=== PATIENT | male | born 1955 | race Caucasian/White ===

== ENCOUNTER 2020-08-23 07:54 | Day surgery (SDC) | payer OTHER ==
--- NOTE | 2020-08-22 11:28 | PCM.PREANE ---
Preanesthetic Assessment - Procedure Proposed Procedure: Right Total Hip Arthroplasty - Anesthesia/Transfusion/Family Hx Anesthesia History: Prior Anesthesia Without Reaction Family History of Anesthesia Reaction: No Transfusion History: No Prior Transfusion(s) Intubation History: Unknown - Review of Systems General: No Symptoms Pulmonary: No Symptoms (COPD: Asthma-last used inhaler: routinely takes BID History of pulmonary nodules, ETOH:Daily 2-3 beers/wine), Cough Cardiovascular: No Symptoms, Dyspnea on Exertion Gastrointestinal: No Symptoms (GERD-depending on diet) Neurological: No Symptoms (Lower back pain #2/10 goes to chiropractor regularly, Vertigo, Motion Sickiness) Other: Reports: None (History of DVT as a freshman in high school.), Sinus Problem (post nasal drip), Depression - Physical Assessment NPO Status Date: 08/22/20 NPO Status Time: 19:30 Vital Signs: HR:74 Sat:96% Temp:97.6 Resp:20 B/P:139/94 Height: 1.73 m Weight: 97 kg ASA Class: 2 Mental Status: Alert & Oriented x3 Airway Class: Mallampati = 2 Dentition: Reports: Normal Dentition, Caries Thyro-Mental Finger Breadths: 3 Mouth Opening Finger Breadths: 3 ROM/Head Extension: Full Lungs: Clear to Auscultation, Normal Respiratory Effort Cardiovascular: Regular Rate, Regular Rhythm, No Murmurs - Lab Values: Laboratory Last Values MRSA (PCR) Negative 08/11/20 13:48 All labs reviewed and noted and within acceptable ranges to proceed with scheduled procedure. - Imaging/EKG Impressions: EKG: SR rate=71, LAE, Incomplete RBBB CXR: negative Chest CT: 12/03/2019: Stable small pulmonary nodules(6mm Right lower lobe, smaller stable nodules also noted.) - Allergies Allergies/Adverse Reactions: Allergies Allergy/AdvReac Type Severity Reaction Status Date / Time No Known Allergies Allergy Verified 08/22/20 14:08 - Anesthesia Plan Pre-Op Medication Ordered: Other (Preoperative oral medications in preop: lyrica, tylenol, oxycodone @ 0840) - Acknowledgements Anesthesia Type Planned: Spinal Pt an Appropriate Candidate for the Planned Anesthesia: Yes Alternatives and Risks of Anesthesia Discussed w Pt/Guardian: Yes Pt/Guardian Understands and Agrees with Anesthesia Plan: Yes PreAnesthesia Questionnaire - HOME MEDS Home Medications: Home Meds Albuterol [Proventil Neb Soln] 1 dose INH Q6H PRN 08/22/20 [History] Albuterol [Take Home: Albuterol 18 GM, 1 INH Pack] 2 puff INH Q4H PRN 08/22/20 [History] Ascorbate Calcium/Bioflavonoid [Mae-C 1,000 mg Tablet] 1 tab PO DAILY 08/22/20 [History] Cholecalciferol (Vitamin D3) [Vitamin D3] 5,000 unit PO DAILY 08/22/20 [History] Electrolytes/Dextrose [Electrolyte Solution] 1 dose PO DAILY 08/22/20 [History] Fluticasone Propionate [Flovent HFA 110 MCG] 2 puff INH BID 08/22/20 [History] Cyclobenzaprine [Flexeril] 10 mg PO BID PRN #20 tab 08/23/20 [Rx] Rivaroxaban [Xarelto] 10 mg PO DAILY #35 tab 08/23/20 [Rx] oxyCODONE 5 - 10 mg PO Q4H PRN #60 tab 08/23/20 [Rx] - CURRENT (IN HOUSE) MEDS Current Meds: Current Medications Albuterol (Proventil Neb Soln) 2.5 mg NEB ONETIME PRN PRN Reason: Asthma Lactated Ringer's (Ringers, Lactated) 1,000 mls @ 125 mls/hr IV ASDIRECTED YOKO Stop: 08/23/20 23:00 Lidocaine/Sodium Bicarbonate (Buffered Lidocaine 1% In Ns 8.4%) 0.25 ml IDERM ONETIME PRN PRN Reason: Prior to IV Start Stop: 08/23/20 18:00 Sodium Chloride (Saline Flush) 10 ml FLUSH ASDIRECTED PRN PRN Reason: Keep Vein Open Stop: 08/23/20 18:00
[~2020-08-23 07:54] MED LIST: Acetaminophen 325 MG Tab PO SCH; Albuterol 0.083% 2.5 MG/3 ML Neb Soln NEB PRN; Dexamethasone 4 MG/ML 5 ML MDV ONE; Ketamine 500 mg/10 ML MDV ONE; Ketorolac 30 MG/ML SDV ONE; Lactated Ringers 1,000 ML IV SCH; Lactated Ringers 1,000 ML ONE; Lidocaine 1% 4 ML ONE; Lidocaine 1%/Sod Bicarbonate in NS 8.4% 1 ML Syringe IDERM PRN; Midazolam 1 MG/ML 2 ML SDV ONE; Ondansetron 4 MG/2 ML SDV ONE; Pregabalin 25 MG Cap PO SCH; Propofol 200 MG/20 ML SDV ONE; Sodium Chloride 0.9% 10 ML Syringe FLUSH PRN; ceFAZolin 1 GM Vial ONE; fentaNYL 100 MCG/2 ML SDV ONE; oxyCODONE ER 10 MG TAB.ER PO SCH
[2020-08-23] MEDS ORDERED: Scopolamine 1.5 MG Transdermal Patch TRDERM ONE (08:40)
[2020-08-23] MEDS ORDERED: Midazolam 1 MG/ML 2 ML SDV ONE (08:50)
[2020-08-23] MEDS ORDERED: Lactated Ringers 1,000 ML ONE (08:51)
[2020-08-23] MEDS ORDERED: diphenhydrAMINE 50 MG/ML SDV IVPUSH PRN (09:55)
[2020-08-23] MEDS ORDERED: ePHEDrine 50 MG/ML SDV IVPUSH PRN (09:55)
[2020-08-23] MEDS ORDERED: fentaNYL 100 MCG/2 ML SDV IVPUSH PRN (09:55)
[2020-08-23] MEDS ORDERED: Metoclopramide 10 MG/2 ML SDV IV PRN (09:55)
[2020-08-23] MEDS ORDERED: Ondansetron 4 MG/2 ML SDV IVPUSH PRN (09:55)
[2020-08-23] MEDS ORDERED: Midazolam 1 MG/ML 2 ML SDV IVPUSH PRN (09:55)
[2020-08-23] MEDS ORDERED: Albuterol 0.083% 2.5 MG/3 ML Neb Soln NEB PRN (09:56)
[2020-08-23] MEDS ORDERED: HYDROmorphone 0.5 MG/0.5 ML Syringe IVPUSH PRN (10:03)
[2020-08-23] MEDS ORDERED: Propofol 200 MG/20 ML SDV ONE (10:23)
[2020-08-23] MEDS: Bupivacaine 0.25% 10 ML SDV ONE ×2 (10:31→10:43)
[2020-08-23] MEDS: Morphine 8 MG, EPINEPHrine 0.3 MG, Cefuroxime 750 MG, Ketorolac 30 MG, Sodium Chloride ... ONE ×10 (10:32→10:43)
[2020-08-23] MEDS: Vancomycin 1 GM SDV ONE ×2 (10:33→10:52)
--- NOTE | 2020-08-23 11:22 | PCM.POSTAN ---
POST ANESTHESIA ASSESSMENT - MENTAL STATUS Mental Status: Alert - VITAL SIGNS Vital Signs: Last Vital Signs Temp 97.5 08/23/20 1113 Pulse 73 08/23/20 1113 Resp 14 08/23/20 1113 BP 132/85 08/23/20 1113 Pulse Ox 97% 08/23/20 1113 - RESPIRATORY Respiratory Status: Respiratory Rate WNL, Airway Patent, O2 Saturation Stable, Supplemental Oxygen - CARDIOVASCULAR CV Status: Pulse Rate WNL, Blood Pressure Stable - GASTROINTESTINAL GI Status: No Symptoms - POST OP HYDRATION Hydration Status: Adequate & Stable
[2020-08-23] MEDS ORDERED: oxyCODONE 5 MG Tab PO PRN (12:41)
--- NOTE | 2020-08-30 13:54 | PCM.OPNOTE ---
- General Post-Op/Procedure Note Date of Surgery/Procedure: 08/23/20 Operative Procedure(s): right total hip arthroplasty Pre Op Diagnosis: right hip osteoarthrosis Post-Op Diagnosis: Same Anesthesia Technique: Local, MAC, Spinal Primary Surgeon: Nikhil Justin Anesthesia Provider: Faith Redmond Parts Sales Representative: Tere Moulton Parts Sales Representative: Luna Burgos EBL in mLs: 200 Complications: None Condition: Good Free Text/Narrative:: 60 cup 6 stem 28-4
--- NOTE | 2020-08-30 13:57 | CR ---
PROCEDURE INFORMATION: Exam: XR Pelvis Exam date and time: 08/23/2020 11:03 AM Age: 64 years old Clinical indication: Condition or disease; Joint replacement status; Right TECHNIQUE: Imaging protocol: XR pelvis. Views: 1 or 2 view. COMPARISON: CR Hip Min 2V or 3V w Pelvis Rt 07/19/2020 11:41 AM FINDINGS: Bones/joints: Bilateral hip replacements, appearing on the right since 07/19/2020. No periprosthetic lucency.. Soft tissues: Unremarkable. IMPRESSION: No acute findings. Status post bilateral hip replacements. Thank you for allowing us to participate in the care of your patient. Dictated and Authenticated by: Dante Marino MD 08/23/2020 12:56 PM Central Time ([place] & [place]) CONFIDENTIALITY STATEMENT This report is intended only for use by the referring physician, and only in accordance with law. If you received this in error, call [phone]. Page 1 of 1 [facility]
--- NOTE | 2020-08-30 15:02 | OR ---
DATE OF OPERATION: 08/23/2020 SURGEON: Nikhil Justin MD OPERATION PERFORMED: Right total hip arthroplasty. PREOPERATIVE DIAGNOSIS: Right hip osteoarthrosis. POSTOPERATIVE DIAGNOSIS: Right hip osteoarthrosis ANESTHESIA: Local MAC with spinal. CONTINUOUS TOWEL ROLLER: Tere Moulton PA-C. ESTIMATED BLOOD LOSS: 200 mL. COMPLICATIONS: None. CONDITION: Stable. IMPLANTS: 1. [place] size 60 mm solid Tritanium II acetabular cup. 2. [place] size 6 Accolade II stem. 3. [place] size 28/42 -4 MDM components. DESCRIPTION OF PROCEDURE: The patient was identified in the preoperative holding area. Proper site was marked and identified by the surgeon. The patient was taken back to the operative theater, where after adequate anesthesia, the patient was placed in a left lateral decubitus position. Axillary roll was placed. Pegs were then placed and well-padded. The patient's gluteal fold was parallel to the floor. At this time, the right hip was then sterilely prepped and draped in the usual sterile fashion. OR time-out was performed. The patient received 2 g IV Ancef. At this time, standard posterior incision was made centered over the greater trochanter. This was taken down to the IT band and gluteal fascia which was incised along the incisional length. Charnley retractor was then placed and takedown of the short external rotators was done from the level of the piriformis down to the lesser trochanter. Hip was then dislocated. Neck cut was completed and found to be adequate. Attention was turned to the acetabulum. Anterior and posterior acetabular retractors were then placed, and then circumferential removal of the labrum as well as the pulvinar was done at this time. Starting with a 54 reamer I was able to ream up to a size 60, which was found to have adequate purchase. A 60 mm Tritanium II acetabular cup was impacted in place following the patient's [place] rim for positioning. At this time, the MDM liner was impacted in place and attention was turned to the femur. Box chisel was used out laterally. Starter awl was placed down the canal. Starting with the 0 broach, I was able to broach up to a size 6 which was found to be rotationally and vertically stable. Standard neck with a -0 trial component was placed. It was found to be very long, so we did do a -4, it was found to have adequate restorationism of leg lengths and was stable throughout range of motion. Trial implants were then dislocated and a size 6 Accolade II stem was impacted in place. The MDM components were constructed on the back table and impacted on the stem. Hip was then relocated and #5 Ethibond suture used for closure of the short external rotators and capsule. 1 L of pulse lavage irrigation with Ancef was irrigated through the hip and then Irrisept irrigation was irrigated through the hip as well. Periarticular injection was completed. Topical tranexamic acid and vancomycin powder were applied. A #2 barbed suture was used for closure of the IT band and gluteal fascia, 2-0 Vicryl was used subcutaneously, and Prineo was used for the skin. The patient tolerated the procedure well and was sent to PACU in stable condition. MMODAL /[id number]
== END 2020-08-23 14:55 | disposition home or self-care (01) ==
LOC: JD.SDS 07:54
PROVIDERS: ATTEND Orthopaedic Surgery
DX: M16.11 Unilateral primary osteoarthritis, right hip (principal); M17.12 Unilateral primary osteoarthritis, left knee; J45.40 Moderate persistent asthma, uncomplicated; F32.9 Major depressive disorder, single episode, unspecified; F41.9 Anxiety disorder, unspecified; Z79.899 Other long term (current) drug therapy; Z98.890 Other specified postprocedural states
CPT/HCPCS: 27130; 36415; 73501; 86850; 86900; 86901; 87641; 94640; 97110; 97161; A9270; C1776; J0171; J0690; J0697; J1100; J1885; J2001; J2250; J2270; J2370; J2405; J2704; J3010; J3370; J3490; J7120; 01214; U0002

== ENCOUNTER 2020-10-16 06:07 | Day surgery (SDC) | payer OTHER ==
[~2020-10-16 06:07] MED LIST changes: -Dexamethasone 4 MG/ML 5 ML MDV ONE; -Ketamine 500 mg/10 ML MDV ONE; -Ketorolac 30 MG/ML SDV ONE; -Lactated Ringers 1,000 ML ONE; -Lidocaine 1% 4 ML ONE; -Midazolam 1 MG/ML 2 ML SDV ONE; -Ondansetron 4 MG/2 ML SDV ONE; -Propofol 200 MG/20 ML SDV ONE; +Scopolamine 1.5 MG Transdermal Patch TRDERM PRN; -ceFAZolin 1 GM Vial ONE; -fentaNYL 100 MCG/2 ML SDV ONE
[2020-10-16] MEDS ORDERED: Propofol 200 MG/20 ML SDV ONE (06:46)
[2020-10-16] MEDS ORDERED: fentaNYL 100 MCG/2 ML SDV ONE (06:46)
[2020-10-16] MEDS ORDERED: Ketamine 500 mg/10 ML MDV ONE (06:47)
[2020-10-16] MEDS ORDERED: Midazolam 1 MG/ML 2 ML SDV ONE ×2 (06:47→07:05)
[2020-10-16] MEDS ORDERED: ceFAZolin 1 GM Vial ONE (06:58)
[2020-10-16] MEDS ORDERED: Lidocaine 1% 4 ML ONE (06:59)
[2020-10-16] MEDS ORDERED: Ondansetron 4 MG/2 ML SDV ONE (07:24)
[2020-10-16] MEDS ORDERED: Dexamethasone 4 MG/ML 5 ML MDV ONE (07:24)
[2020-10-16] MEDS: Morphine 8 MG, EPINEPHrine 0.3 MG, Cefuroxime 750 MG, Ketorolac 30 MG, Sodium Chloride ... PRN ×10 (07:52→08:15)
[2020-10-16] MEDS: Bupivacaine 0.25% 10 ML SDV ONE ×2 (07:52→08:14)
[2020-10-16] MEDS: Vancomycin 1 GM SDV ONE ×2 (07:53→08:24)
[2020-10-16] MEDS ORDERED: fentaNYL 100 MCG/2 ML SDV IVPUSH PRN (08:34)
[2020-10-16] MEDS ORDERED: HYDROmorphone 0.5 MG/0.5 ML Syringe IVPUSH PRN (08:34)
[2020-10-16] MEDS ORDERED: Ondansetron 4 MG/2 ML SDV IVPUSH PRN (08:34)
[2020-10-16] MEDS ORDERED: Ropivacaine 0.5% 5 MG/ML 30 ML SDV ONE (08:53)
[2020-10-16] MEDS ORDERED: EPINEPHrine 1 MG/ML SDV ONE (08:53)
--- NOTE | 2020-10-16 09:26 | CR ---
Left knee: Supine and crosstable lateral views of the left knee were obtained. Comparison: No prior knee study. Knee prosthesis is noted. Components are aligned. Soft tissue air is noted from the surgical procedure. No acute osseous finding is appreciated. Impression: 1. Satisfactory postop radiographic appearance of recently placed left knee prosthesis. Diagnostic code #2
--- NOTE | 2020-10-16 09:38 | PCM.PREANE ---
Preanesthetic Assessment - Procedure Proposed Procedure: Left total knee replacement - Anesthesia/Transfusion/Family Hx Anesthesia History: Prior Anesthesia Without Reaction Family History of Anesthesia Reaction: No Transfusion History: No Prior Transfusion(s) Intubation History: Unknown - Review of Systems General: No Symptoms Pulmonary: Cough, Other (Reactive Airway Disease, BID inhaler use. Chronic cough. ) Cardiovascular: No Symptoms Gastrointestinal: No Symptoms Neurological: Other (Motion Sickness) Other: Reports: None - Physical Assessment NPO Status Date: 10/15/20 NPO Status Time: 18:00 Vital Signs: Last Vital Signs Temp 36.2 C 10/16/20 09:20 Pulse 68 10/16/20 09:20 Resp 12 10/16/20 09:20 BP 106/54 L 10/16/20 09:20 Pulse Ox 93 L 10/16/20 09:20 Height: 1.75 m Weight: 97.069 kg ASA Class: 2 Mental Status: Alert & Oriented x3 Airway Class: Mallampati = 2 Dentition: Reports: Normal Dentition Thyro-Mental Finger Breadths: 2 Mouth Opening Finger Breadths: 3 ROM/Head Extension: Full Lungs: Clear to Auscultation, Normal Respiratory Effort, Decreased Breath Sounds Cardiovascular: Regular Rate, Regular Rhythm - Lab Values: Laboratory Last Values MRSA (PCR) Negative 10/04/20 13:18 - Allergies Allergies/Adverse Reactions: Allergies Allergy/AdvReac Type Severity Reaction Status Date / Time No Known Allergies Allergy Verified 10/13/20 14:30 - Anesthesia Plan Pre-Op Medication Ordered: Anxiolytic, Other (Scopalamine Patch) - Acknowledgements Anesthesia Type Planned: Spinal Pt an Appropriate Candidate for the Planned Anesthesia: Yes Alternatives and Risks of Anesthesia Discussed w Pt/Guardian: Yes Pt/Guardian Understands and Agrees with Anesthesia Plan: Yes PreAnesthesia Questionnaire HEENT History: Reports: Impaired Vision, Other (See Below) Other HEENT History: wears glasses Cardiovascular History: Reports: None Respiratory History: Reports: Other (See Below) Other Respiratory History: cough, wheezing, reactive airway disease, pulmonary nodules Gastrointestinal History: Reports: Hemorrhoids Genitourinary History: Reports: None MACHINE REPAIRER History: Reports: None Musculoskeletal History: Reports: Osteoarthritis, Other (See Below) Other Musculoskeletal History: arm tumor with removal Neurological History: Reports: None Psychiatric History: Reports: Depression Endocrine/Metabolic History: Reports: None Hematologic History: Reports: None Immunologic History: Reports: None Oncologic (Cancer) History: Reports: None Dermatologic History: Reports: None - Infectious Disease History Infectious Disease History: Reports: None - Past Surgical History Head Surgeries/Procedures: Reports: None Cardiovascular Surgical History: Reports: None Respiratory Surgical History: Reports: None GI Surgical History: Reports: Colonoscopy Female Surgical History: Reports: None Male Surgical History: Reports: None Endocrine Surgical History: Reports: None Neurological Surgical History: Reports: None Musculoskeletal Surgical History: Reports: Knee Replacement, Other (See Below) Other Musculoskeletal Surgeries/Procedures:: left wrist surgery, partial right total knee replacment, shoulder surgery Oncologic Surgical History: Reports: None Dermatological Surgical History: Reports: None - SUBSTANCE USE Tobacco Use Status *Q: Never Tobacco User Days Per Week of Alcohol Use: 3 Number of Drinks Per Day: 2 Total Drinks Per Week: 6 Recreational Drug Use History: No - HOME MEDS Home Medications: Home Meds Albuterol [Proventil Neb Soln] 1 dose INH Q6H PRN 08/22/20 [History] Albuterol [Take Home: Albuterol 18 GM, 1 INH Pack] 2 puff INH Q4H PRN 08/22/20 [History] Ascorbate Calcium/Bioflavonoid [Mae-C 1,000 mg Tablet] 1 tab PO DAILY 08/22/20 [History] Cholecalciferol (Vitamin D3) [Vitamin D3] 5,000 unit PO DAILY 08/22/20 [History] Fluticasone Propionate [Flovent HFA 110 MCG] 2 puff INH BID 08/22/20 [History] Cider Vinegar [Apple Cider Vinegar] 500 mg PO DAILY 10/13/20 [History] Magnesium 200 mg PO DAILY 10/13/20 [History] Sodium Chloride/KCl [Thermotabs] 2 tab PO DAILY 10/13/20 [History] Cyclobenzaprine [Flexeril] 10 mg PO BID PRN #20 tab 10/16/20 [Rx] Rivaroxaban [Xarelto] 10 mg PO DAILY #30 tab 10/16/20 [Rx] oxyCODONE 5 - 10 mg PO Q4H PRN #40 tab 10/16/20 [Rx] - CURRENT (IN HOUSE) MEDS Current Meds: Current Medications Acetaminophen (Tylenol) 975 mg PO ONETIME YOKO Stop: 10/16/20 14:00 Last Admin: 10/16/20 06:19 Dose: 975 mg Documented by: Albuterol (Proventil Neb Soln) 2.5 mg NEB ONETIME PRN PRN Reason: asthma Stop: 10/16/20 18:00 Last Admin: 10/16/20 06:43 Dose: 2.5 mg Documented by: Morphine Sulfate 8 mg/Epinephrine HCl 0.3 mg/Cefuroxime Sodium 750 mg/Ketorolac Tromethamine 30 mg/Sodium Chloride 7.9 ml 0 mg .XX ASDIRECTED PRN PRN Reason: Pain Last Admin: 10/16/20 08:15 Dose: 788.3 mg Documented by: Fentanyl (Sublimaze) 50 mcg IVPUSH Q5M PRN PRN Reason: Pain Stop: 10/16/20 12:00 Hydromorphone HCl (Dilaudid) 0.5 mg IVPUSH Q10M PRN PRN Reason: Pain (severe 7-10) Stop: 10/16/20 12:00 Lactated Ringer's (Ringers, Lactated) 1,000 mls @ 125 mls/hr IV ASDIRECTED YOKO Stop: 10/16/20 23:00 Lidocaine/Sodium Bicarbonate (Buffered Lidocaine 1% In Ns 8.4%) 0.25 ml IDERM ONETIME PRN PRN Reason: Prior to IV Start Stop: 10/16/20 18:00 Ondansetron HCl (Zofran) 4 mg IVPUSH ONETIME PRN PRN Reason: Nausea/Vomiting Stop: 10/16/20 12:00 Oxycodone HCl (Oxycontin) 10 mg PO ONETIME YOKO Stop: 10/16/20 14:00 Last Admin: 10/16/20 06:18 Dose: 10 mg Documented by: Pregabalin (Lyrica) 50 mg PO ONETIME YOKO Stop: 10/16/20 14:00 Last Admin: 10/16/20 06:19 Dose: 50 mg Documented by: Scopolamine (Transderm-Scop) 1.5 mg TRDERM ONETIME PRN PRN Reason: PONV Stop: 10/16/20 18:00 Last Admin: 10/16/20 06:20 Dose: 1.5 mg Documented by: Sodium Chloride (Saline Flush) 10 ml FLUSH ASDIRECTED PRN PRN Reason: Keep Vein Open Stop: 10/16/20 18:00 Discontinued Medications Bupivacaine HCl (Sensorcaine-Mpf 0.25%) Confirm Administered Dose 30 ml .ROUTE .STK-MED ONE Stop: 10/16/20 06:18 Last Admin: 10/16/20 08:14 Dose: 30 ml Documented by: Cefazolin Sodium (Ancef) Confirm Administered Dose 2 gm .ROUTE .STK-MED ONE Stop: 10/16/20 06:59 Dexamethasone (Dexamethasone) Confirm Administered Dose 20 mg .ROUTE .STK-MED ONE Stop: 10/16/20 07:25 Epinephrine HCl (Adrenalin) Confirm Administered Dose 1 mg .ROUTE .STK-MED ONE Stop: 10/16/20 08:54 Fentanyl (Sublimaze) Confirm Administered Dose 100 mcg .ROUTE .STK-MED ONE Stop: 10/16/20 06:47 Lidocaine HCl (Xylocaine-Mpf 1%) Confirm Administered Dose 4 mls @ as directed .ROUTE .STK-MED ONE Stop: 10/16/20 07:00 Ketamine HCl (Ketalar) Confirm Administered Dose 500 mg .ROUTE .STK-MED ONE Stop: 10/16/20 06:48 Midazolam HCl (Versed 1 Mg/Ml) Confirm Administered Dose 2 mg .ROUTE .STK-MED ONE Stop: 10/16/20 06:48 Midazolam HCl (Versed 1 Mg/Ml) Confirm Administered Dose 2 mg .ROUTE .STK-MED ONE Stop: 10/16/20 07:06 Ondansetron HCl (Zofran) Confirm Administered Dose 4 mg .ROUTE .STK-MED ONE Stop: 10/16/20 07:25 Propofol (Diprivan 20 Ml) Confirm Administered Dose 600 mg .ROUTE .STK-MED ONE Stop: 10/16/20 06:47 Ropivacaine (Naropin 0.5%) Confirm Administered Dose 30 ml .ROUTE .STK-MED ONE Stop: 10/16/20 08:54 Tranexamic Acid (Cyklokapron) Confirm Administered Dose 1,000 mg .ROUTE .STK-MED ONE Stop: 10/16/20 06:18 Last Admin: 10/16/20 08:24 Dose: 1,000 mg Documented by: Vancomycin HCl (Vancomycin) Confirm Administered Dose 1 gm .ROUTE .STK-MED ONE Stop: 10/16/20 06:18 Last Admin: 10/16/20 08:24 Dose: 1 gm Documented by:
--- NOTE | 2020-10-16 09:39 | PCM.POSTAN ---
POST ANESTHESIA ASSESSMENT - MENTAL STATUS Mental Status: Alert, Oriented - VITAL SIGNS Vital Signs: Last Vital Signs Temp 36.2 C 10/16/20 09:20 Pulse 68 10/16/20 09:20 Resp 12 10/16/20 09:20 BP 106/54 L 10/16/20 09:20 Pulse Ox 93 L 10/16/20 09:20 - RESPIRATORY Respiratory Status: Respiratory Rate WNL, Airway Patent, O2 Saturation Stable, Supplemental Oxygen - CARDIOVASCULAR CV Status: Pulse Rate WNL, Blood Pressure Stable - GASTROINTESTINAL GI Status: No Symptoms - PAIN Pain Score: 0 - POST OP HYDRATION Hydration Status: Adequate & Stable
--- NOTE | 2020-10-16 09:46 | PCM.SN.2 ---
- Free Text/Narrative Note: Left selective femoral nerve block at the adductor canal for post-procedure pain control under US guidance requested by Dr. Justin. Time Out: 857 Start: 857 End: 900 Chart reviewed. Consent signed. Questions answered. Appropriate monitors applied. Time out performed. Left mid-shaft femur identified with ultrasound, scanning medially of femur, the femoral artery in the adductor canal visualized, and the femoral nerve located laterally to the artery. The skin was prepped lateral to the ultrasound probe with chlorahexadine times two. The 21ga 4 insulated block needle was inserted under direct ultrasound guidance into the adductor canal. 25mL of 0.5% ropivacaine with 1:200,000 epinephrine was injected circumferentially around the nerve with intermittent negative aspiration noted. Patient tolerated the procedure well. Sterile technique noted along with sterile gloves, mask, and sterile probe cover. See picture on progress note and vital signs on nurses notes. Block completed in PACU. Katie Meng CRNA
--- NOTE | 2020-10-16 11:46 | PCM48HPAN ---
Post Anesthesia Note - EVALUATION WITHIN 48HRS OF ANESTHETIC Vital Signs in Normal Range: Yes Patient Participated in Evaluation: Yes Respiratory Function Stable: Yes Airway Patent: Yes Cardiovascular Function Stable: Yes Hydration Status Stable: Yes Pain Control Satisfactory: Yes Nausea and Vomiting Control Satisfactory: Yes Mental Status Recovered: Yes Vital Signs: Last Vital Signs Temp 97.3 F 10/16/20 10:30 Pulse 66 10/16/20 11:02 Resp 16 10/16/20 11:02 BP 119/82 10/16/20 11:02 Pulse Ox 98 10/16/20 11:02 - COMMENTS/OBSERVATIONS Free Text/Narrative:: Patient is being ambulated with PT and preparing for home discharge
[2020-10-16] MEDS ORDERED: oxyCODONE 5 MG Tab PO SCH (12:00)
[2020-10-16] MEDS: oxyCODONE 5 MG Tab PO SCH ×2 (12:02→12:03)
--- NOTE | 2020-11-06 07:18 | PCM.OPNOTE ---
- General Post-Op/Procedure Note Date of Surgery/Procedure: 11/16/20 Operative Procedure(s): left total knee arthroplasty Pre Op Diagnosis: left knee osteoarthrosis Post-Op Diagnosis: Same Anesthesia Technique: Local, MAC, Spinal Primary Surgeon: Nikhil Justin Anesthesia Provider: Sumi Meng Pediatric Speech Language Pathologist: Tere Moulton Pediatric Speech Language Pathologist: Luna Burgos EBL in mLs: 200 Complications: None Condition: Good Free Text/Narrative:: 6 femur 7 tibia 10mm 35x10
--- NOTE | 2020-11-06 10:01 | OR ---
DATE OF OPERATION: 10/16/2020 SURGEON: Nikhil Justin MD OPERATION PERFORMED: Left total knee arthroplasty. PREOPERATIVE DIAGNOSIS: Left knee osteoarthrosis. POSTOPERATIVE DIAGNOSIS: Left knee osteoarthrosis. ANESTHESIA: Local MAC with spinal. ANESTHESIA PROVIDER: Karyn Gautam. ASSISTANTS: Tere Moulton PA-C and Luna Burgos LPN. ESTIMATED BLOOD LOSS: 200 mL. COMPLICATIONS: None. CONDITION: Stable. IMPLANTS: 1. [place] size 6 press-fit CR femur. 2. [place] size 7 press-fit tibial baseplate. 3. [place] size 7, 10 mm CS polyethylene insert. 4. [place] size 35 x 10 mm press-fit asymmetric patella. DESCRIPTION OF PROCEDURE: The patient was identified in the preop holding area. Proper site was marked and identified by the surgeon. The patient was taken back to the operating theater. After adequate anesthesia, the patient's left lower extremity had a nonsterile tourniquet applied and it was sterilely prepped and draped in the usual sterile fashion. OR time-out was performed. The patient received 2 g IV Ancef. At this time, the left lower extremity was exsanguinated. Tourniquet was insufflated to 300 mmHg. Standard medial parapatellar incision was made. Medial parapatellar arthrotomy was created. Deep fibers of the MCL were raised and anterior fat pad was resected. At this time, attention was turned to the patella. Patella measured 26, it was resected to a 15 for a 35 x10 mm patella. Drill holes were then drilled and found to be in adequate position. The drill was then drilled in the distal femur and the intramedullary distal femoral cutting guide was then placed. 8 mm was resected off the distal femur and was found to be an adequate resection. Sizing guide was placed. It was found to be a size 6 press-fit CR femur that was shown on the implant record at the beginning of this dictation. The drill holes were drilled for the epicondylar axis using [place] line and epicondyles as reference. At this time, the 4-in- 1 cutting block was placed. An anterior posterior and anterior and posterior chamfer cuts were then completed. Attention was turned to the tibia. The posterior medial lateral retractors were placed. The extramedullary tibial guide was placed. It was placed in the old footprint of the ACL. It was aligned with the center of the ankle and 0 degrees of slope, 9 mm was then resected off the unaffected side. There was found to be an acceptable reduction. At this time, posterior osteophytes were removed along with medial and lateral meniscus. A trial implant was placed with a correct sized tibia that was mentioned at the beginning of the dictation. A [place] size 7, 10 mm CS polyethylene insert was then placed. The patient's knee was brought through range of motion. The patella was tracking centrally and was stable to varus and valgus stress. Alignment was found to be roughly at 0 degrees. The tibia was stamped and drilled in proper rotation. The universal tibial base plate was impacted in place. Next, the [place] size 6 press-fit CR femur impacted into place and the [place] size 7, 10 mm CS polyethylene insert was placed. The patient's knee was brought into full extension. The patella was then press-fit in place at this time. Tourniquet was deflated. One liter dilute Betadine solution was irrigated through the knee along with 3 L of pulse lavage irrigation with Ancef. Periarticular injection was then completed. The patient's knee was brought through a range of motion. Once the cement had time to set up and it was found to be stable to varus valgus stress, the patella was tracking centrally with full range of motion. At this time, a #2 barbed suture was used for closure of the medial parapatellar arthrotomy. Topical tranexamic acid was placed. 2-0 Vicryl was used subcutaneously, Prineo was used for the skin. The patient tolerated the procedure well and was sent to the PACU in stable condition. MMODAL /[id number]
== END 2020-10-16 12:35 | disposition home or self-care (01) ==
LOC: JD.SDS 06:07 → EDSTATUS 07:30 → JD.SDS 12:35
PROVIDERS: ATTEND Orthopaedic Surgery
DX: M17.12 Unilateral primary osteoarthritis, left knee (principal); M16.11 Unilateral primary osteoarthritis, right hip; J45.40 Moderate persistent asthma, uncomplicated; G89.18 Other acute postprocedural pain; Z79.899 Other long term (current) drug therapy; Z98.890 Other specified postprocedural states
CPT/HCPCS: 27447; 73560; 87641; 94640; 97116; 97162; 97165; A9270; C1776; J0171; J0690; J0697; J1100; J1885; J2001; J2250; J2270; J2405; J2704; J2795; J3010; J3370; J3490; J7120; 01402; 64450; 97161-GP

== ENCOUNTER 2024-01-27 14:52 | Emergency (ER) | payer MEDICARE, BC ==
[2024-01-27 16:21] LABS: BASOPHILS ABSOLUTE AUTO 0.1 K/mm3 (0.0-0.2); BASOPHILS PERCENT AUTO 0.5 % (0.0-1.0); EOSINOPHILS ABSOLUTE AUTO 0.5 K/mm3 (0.0-0.4); EOSINOPHILS PERCENT AUTO 4.3 % (0.0-6.0); HEMATOCRIT 41.3 % (42.0-52.0); HEMOGLOBIN 13.7 gm/dl (14.0-18.0); IMMATURE GRAN ABSOLUTE AUTO 0.11 K/mm3 (0.00-0.05); IMMATURE GRAN PERCENT AUTO 0.9 % (0.0-0.4); LYMPHOCYTES ABSOLUTE AUTO 1.8 K/mm3 (1.0-4.8); LYMPHOCYTES PERCENT AUTO 14.6 % (24.0-44.0); MEAN CORPUSCULAR HEMOGLOBIN 31.6 pg (28.0-32.0); MEAN CORPUSCULAR HGB CONC 33.2 g/dl (32.0-36.0); MEAN CORPUSCULAR VOLUME 95.4 fl (83.0-99.0); MEAN PLATELET VOLUME 8.3 fl (9.4-12.4); MONOCYTES ABSOLUTE AUTO 0.9 K/mm3 (0.0-0.8); MONOCYTES PERCENT AUTO 7.4 % (0.0-8.0); NEUTROPHILS PERCENT AUTO 72.3 % (41.0-71.0); PLATELET COUNT,PLT 255 K/mm3 (150-400); RED BLOOD CELL COUNT 4.33 M/mm3 (4.52-5.90); WHITE BLOOD CELL COUNT,WBC 12.44 K/mm3 (3.9-11.3)
[2024-01-27 16:37] LABS: A/G RATIO 0.9 (1-2); ALBUMIN 3.3 g/dl (3.4-5.0); ANION GAP 13.6 (5-15); BILIRUBIN TOTAL 0.6 mg/dL (0.2-1.0); BUN/CREATININE RATIO 21.7 (14-18); CALCIUM 8.9 mg/dL (8.5-10.1); CREATININE 1.2 mg/dL (0.7-1.3); EST CRCL DRUG DOSING (CG) 57.79 mL/min; POTASSIUM,K 4.6 mEq/L (3.5-5.1); PROTHROMBIN TIME 9.8 SECONDS (9.7-12.0)
[2024-01-27 16:38] LABS: PTT,PARTIAL THROMBOPLSTIN TIME 25.3 SECONDS (21.7-31.4)
[2024-01-27] MEDS ORDERED: Sodium Chloride 0.9% 10 ML Syringe FLUSH ONE (16:40)
[2024-01-27] MEDS: Sodium Chloride 0.9% 10 ML Syringe FLUSH PRN (16:41)
[2024-01-27] MEDS: Iopamidol 612 MG/ML 100 ML Bottle IVPUSH ONE (16:41)
[2024-01-27 17:01] LABS: INR < 0.93
== END 2024-01-27 18:15 | disposition home or self-care (01) ==
LOC: JD.ED 14:52
DX: S32.10XA Unspecified fracture of sacrum, initial encounter for closed fracture (principal); S70.01XA Contusion of right hip, initial encounter; I10 Essential (primary) hypertension; Z86.16 Personal history of COVID-19; Z79.899 Other long term (current) drug therapy; W11.XXXA Fall on and from ladder, initial encounter
CPT/HCPCS: 36415; 72131; 74177; 80053; 83690; 85025; 85610; 85730; 99284; J3490; Q9967

== ENCOUNTER 2024-08-10 15:55 | Emergency (ER) | payer MEDICARE, BC ==
[2024-08-10] MEDS: Lidocaine 1% 10 ML MDV INJECT ONE (18:08)
[2024-08-10] MEDS: Diphtheria,Pertussis(Acell),Tetanus Vaccine 0.5 ML Syringe IM ONE (18:09)
[2024-08-10] MEDS: Cephalexin 500 MG Cap PO ONE (20:25)
== END 2024-08-10 20:39 | disposition home or self-care (01) ==
LOC: JD.ED 15:55
DX: S61.213A Laceration without foreign body of left middle finger without damage to nail, initial encounter (principal); S61.215A Laceration without foreign body of left ring finger without damage to nail, initial encounter; M20.012 Mallet finger of left finger(s); I10 Essential (primary) hypertension; J45.909 Unspecified asthma, uncomplicated; Z23 Encounter for immunization; Z86.16 Personal history of COVID-19; Z79.891 Long term (current) use of opiate analgesic; Z79.899 Other long term (current) drug therapy; W23.1XXA Caught, crushed, jammed, or pinched between stationary objects, initial encounter
CPT/HCPCS: 12002; 73130-26-LT; 73130-LT; 90471; 90715; 99283-25; A9270-GY; J3490

== ENCOUNTER 2025-01-10 07:41 | Day surgery (SDC) | payer MEDICARE, BC ==
[~2025-01-10 07:41] MED LIST changes: -Acetaminophen 325 MG Tab PO SCH; -Albuterol 0.083% 2.5 MG/3 ML Neb Soln NEB PRN; -Lactated Ringers 1,000 ML IV SCH; -Lidocaine 1%/Sod Bicarbonate in NS 8.4% 1 ML Syringe IDERM PRN; -Pregabalin 25 MG Cap PO SCH; -Scopolamine 1.5 MG Transdermal Patch TRDERM PRN; +Sodium Chloride 0.9% 10 ML Syringe FLUSH SCH; -oxyCODONE ER 10 MG TAB.ER PO SCH
[2025-01-10] MEDS: Lactated Ringers 1,000 ML IV SCH (08:00)
[2025-01-10] MEDS ORDERED: Midazolam 1 MG/ML 2 ML SDV ONE (08:24)
[2025-01-10] MEDS ORDERED: Ropivacaine 0.5% 5 MG/ML 30 ML SDV ONE (08:24)
[2025-01-10] MEDS ORDERED: dexmedeTOMIDine HCl 200 MCG/2 ML SDV ONE (08:24)
[2025-01-10] MEDS ORDERED: Propofol 200 MG/20 ML SDV ONE ×4 (08:24→10:17)
[2025-01-10] MEDS ORDERED: Ondansetron 4 MG/2 ML SDV ONE (08:24)
[2025-01-10] MEDS: oxyCODONE ER 10 MG TAB.ER PO SCH (08:25)
[2025-01-10] MEDS: Acetaminophen 325 MG Tab PO SCH (08:25)
[2025-01-10] MEDS: Pregabalin 25 MG Cap PO SCH (08:25)
[2025-01-10] MEDS ORDERED: ePHEDrine 50 MG/ML SDV ONE (09:05)
[2025-01-10] MEDS ORDERED: ceFAZolin 2 GM Vial ONE (09:07)
[2025-01-10] MEDS ORDERED: Phenylephrine 1% 10 MG/ML SDV ONE (09:15)
[2025-01-10] MEDS ORDERED: Lactated Ringers 1,000 ML IV ONE (09:30)
[2025-01-10] MEDS ORDERED: Ketorolac 30 MG/ML SDV IVPUSH PRN (09:47)
[2025-01-10] MEDS: Morphine 8 MG, EPINEPHrine 0.3 MG, Cefuroxime 750 MG, Ketorolac 30 MG, Sodium Chloride ... PRN (10:33)
[2025-01-10] MEDS: VANCOmycin 1 GM SDV ONE (10:39)
[2025-01-10] MEDS: Tranexamic Acid 1,000 MG/10 ML Vial ONE (10:39)
[2025-01-10] MEDS: oxyCODONE 5 MG Tab PO PRN (11:50)
== END 2025-01-10 14:05 | disposition home or self-care (01) ==
LOC: JD.SDS 07:41
PROVIDERS: ATTEND Orthopaedic Surgery
DX: T84.84XA Pain due to internal orthopedic prosthetic devices, implants and grafts, initial encounter (principal); J45.40 Moderate persistent asthma, uncomplicated; G47.33 Obstructive sleep apnea (adult) (pediatric); I10 Essential (primary) hypertension; E78.00 Pure hypercholesterolemia, unspecified; Z79.899 Other long term (current) drug therapy; M25.561 Pain in right knee
CPT/HCPCS: 27487; 73560; 97116; 97161; A9270; C1713; C1776; J0171; J0690; J0697; J1885; J2250; J2272; J2371; J2405; J2704; J2795; J7120; 01402; 64447; J3490